=== PATIENT | female | born 1985 | race Two or more races ===

== ENCOUNTER 2016-11-30 11:43 | Emergency (ER) | payer MEDICAID ==
[~2016-11-30] VITALS: Ht 160 cm; Wt 80.3 kg
[2016-11-30 12:16] VITALS: BP 118/82
== END 2016-11-30 13:34 | disposition home or self-care (01) ==
LOC: ER 11:43
DX: G44.209 Tension-type headache, unspecified, not intractable (principal)
CPT/HCPCS: 70450